=== PATIENT | female | born 1930 | race Caucasian/White ===

== ENCOUNTER 2016-11-25 14:40 | Emergency (ER) | payer MEDICARE, OTHER ==
[2016-11-25 17:31] LABS: HEMOGLOBIN 11.9 gm/dl (12.3-15.3); RED BLOOD COUNT 3.72 M/UL (4.00-5.10); WHITE BLOOD COUNT 19.4 K/UL (4.5-11.0)
== END 2016-11-26 01:00 | disposition short-term general hospital (02) ==
LOC: ER1 14:40
PROVIDERS: Family Medicine
DX: R55 Syncope and collapse (principal); R65.10 Systemic inflammatory response syndrome (SIRS) of non-infectious origin without acute organ dysfunction; J18.9 Pneumonia, unspecified organism; I10 Essential (primary) hypertension; C24.9 Malignant neoplasm of biliary tract, unspecified; I95.9 Hypotension, unspecified; Z88.2 Allergy status to sulfonamides; Z79.899 Other long term (current) drug therapy
CPT/HCPCS: 36415; 70450; 71010; 80053; 81001; 82150; 82550; 82553; 83605; 83690; 83874; 84484; 85025; 85610; 85730; 87040; 87086; 93005; 96361; 96365; 96367; 96375; 99285; J2270; J2405; J2543; J3370; J7050